=== PATIENT | female | born 1930 | race African-American/Black ===

== ENCOUNTER 2017-06-15 19:14 | Observation (INO) | payer OTHER ==
[~2017-06-15] VITALS: Ht 165.1 cm; Wt 61.2 kg
--- NOTE | ~2017-06-15 | 2DMMODE ---
[facility] [address] [place] [address] 2 D/M-MODE ECHOCARDIOGRAM Name: MARKY VAZQUEZ Room #: 205-P ADM IN M.R.#: [id number] Admission: 06/15/17 Attend Phys: Jeb Boyce, Discharge: Date of : [birth year] Date of Service: 06/16/17 1215 Report #: [id number] THIS REPORT FOR: //name// APPROVED REPORT Study performed: 06/16/2017 10:26:26 EXAM: Comprehensive 2D, Doppler, and color-flow Echocardiogram Patient Location: Echo lab Room #: [facility] Status: routine BSA: 1.67 HR: 64 bpm BP: 119/63 mmHg Rhythm: NSR Other Information Study Quality: Good Indications Syncope 2D Dimensions RVDd: 38.50 mm LVEF(%): 32.93 (>50%) IVSd: 10.72 (7-11mm) LVDd: 54.26 mm PWd: 9.50 (7-11mm) Ascending Ao: 29.86 (22-36mm) LVDs: 45.70 (25-40mm) Aortic Root: 31.26 mm Garces's LVEF: 32.93 % Volumes Left Atrial Volume (Systole) Single Plane 4CH: 42.38 mL Single Plane 2CH: 36.55 mL LA ESV Index: 27.00 mL/m2 Aortic Valve AoV Peak Jaziel.: 1.22 m/s AO Peak Gr.: 5.93 mmHg LVOT Max P.01 mmHg LVOT Max V: 0.87 m/s Mitral Valve E/A Ratio: 0.6 MV Decel. Time: 270.12 ms MV E Max Jaziel.: 0.57 m/s [facility] [address] [address] 2 D/M-MODE ECHOCARDIOGRAM Name: MARKY VAZQUEZ Room #: 205-P [facility] IN M.R.#: [id number] Admission: 06/15/17 Attend Phys: Jeb Boyce, Discharge: Date of : [birth year] Date of Service: 06/16/17 1215 Report #: [id number] MV A Jaziel.: 0.95 m/s MV PHT: 78.33 ms IVRT: 96.89 ms Pulmonary Valve PV Peak Jaziel.: 0.76 m/s PV Peak Gr.: 2.30 mmHg Pulmonary Vein P Vein S: 0.45 m/s P Vein A: 0.23 m/s P Vein D: 0.33 m/s P Vein A Dur.: 87.7 msec P Vein S/D Ratio: 1.36 Tricuspid Valve TR Peak Jaziel.: 3.03 m/s RAP Estimate: 10.00 mmHg TR Peak Gr.: 36.63 mmHg PA Pressure: 47.00 mmHg Left Ventricle The left ventricle is normal size. There is normal left ventricular wall thickness. Left ventricular systolic function is moderately decreased. LVEF is 35-40%. with segmental wall motion abnormalities Grade I - abnormal relaxation pattern. Right Ventricle The right ventricle is normal size. The right ventricular systolic function is normal. Atria The left atrium size is normal. The right atrium size is normal. Aortic Valve Aortic valve leaflets are mildly thickened and calcified. Aortic valve is trileaflet. Trace aortic regurgitation. There is no aortic valvular stenosis. Mitral Valve Mitral valve leaflets are mildly thickened. Mild mitral annular calcification. Trace to mild mitral regurgitation. No evidence of mitral valve stenosis. Tricuspid Valve The tricuspid valve is normal in structure. There is mild tricuspid regurgitation. The right atrial pressure is estimated at 10 mmHg. There is moderate pulmonary hypertension with an estimated PAP of 47mmHg. [address] [address] 2 D/M-MODE ECHOCARDIOGRAM Name: MARKY VAZQUEZ Room #: 205-P [facility] IN ..#: [id number] Admission: 06/15/17 Attend Phys: Jeb Boyce, Discharge: Date of : [birth year] Date of Service: 06/16/17 1215 Report #: [id number] Pulmonic Valve The pulmonary valve is normal in structure. Trace pulmonic regurgitation. Great Vessels The aortic root is normal in size. The ascending aorta is normal in size. IVC is normal in size and collapses <50% with inspiration. Pericardium There is no pericardial effusion. <Conclusion> The left ventricle is normal size. Left ventricular systolic function is moderately decreased. LVEF is 35-40%. with segmental wall motion abnormalities Aortic valve leaflets are mildly thickened and calcified. Aortic valve is trileaflet. Trace aortic regurgitation. Mitral valve leaflets are mildly thickened. Mild mitral annular calcification. Trace to mild mitral regurgitation. The tricuspid valve is normal in structure. There is mild tricuspid regurgitation. The right atrial pressure is estimated at 10 mmHg. There is moderate pulmonary hypertension with an estimated PAP of 47mmHg. The pulmonary valve is normal in structure. Trace pulmonic regurgitation. <ELECTRONICALLY SIGNED> By: Curtis Harding MD 06/16/17 1215 14 14 Curtis Harding MD /INF
--- NOTE | ~2017-06-15 | EKG ---
[address] [place] [employer] [place] [address] ELECTROCARDIOGRAM REPORT Name: MARKY VAZQUEZ Room #: 205-P ADM IN M.R.#: [id number] Admission: 06/15/17 Attend Phys: Jeb Boyce DO Discharge: Date of : [birth year] Report #: [id number] THIS REPORT FOR: //name// [facility] ED Test Date: 2017-06-15 Test Time: 19:19:36 Pat Name: MARKY VAZQUEZ Department: Room: 205 Gender: F Executive Relations Specialist: NERY : 1930 Requested By: Ramos Martino Order Number: [id number] MD: Antwon Manrique Measurements Intervals [place] Rate: 63 P: 45 MN: 169 QRS: -38 QRSD: 96 T: 88 QT: 397 QTc: 407 Interpretive Statements Sinus rhythm Abnormal R-wave progression, early transition Left ventricular hypertrophy Compared to ECG 04/16/2015 15:30:59 Atrial premature complex(es) no longer present Electronically Signed On 06-16-2017 17:51:19 CDT by Antwon Manrique [email or web address] <ELECTRONICALLY SIGNED> By: Antwon Manrique MD, [facility] 06/16/17 1751 1919 18 Antwon Manrique MD, [facility] /EPI
--- NOTE | ~2017-06-15 | EKG ---
[address] [place] [address] ELECTROCARDIOGRAM REPORT Name: MARKY VAZQUEZ Room #: 205-P ADM IN M.R.#: [id number] Admission: 06/15/17 Attend Phys: Jeb Boyec DO Discharge: Date of : [birth year] Report #: [id number] THIS REPORT FOR: //name// [facility] Test Date: 2017-06-16 Test Time: 07:32:54 Pat Name: MARKY VAZQUEZ Department: Room: 205 P Gender: F Overhead Cleaner: BRADLY : 1930 Requested By: Marisol Carlos Order Number: [id number] MD: Antwon Manrique Measurements Intervals [place] Rate: 66 P: 45 WI: 201 QRS: -44 QRSD: 84 T: 88 QT: 355 QTc: 372 Interpretive Statements Sinus rhythm Left anterior fascicular block Abnormal R-wave progression, late transition Nonspecific T abnormalities Compared to ECG 04/16/2015 15:30:59 nonspecific change in the T wave abnormality Electronically Signed On 06-16-2017 17:56:39 CDT by Antwon Manrique [email or web address] <ELECTRONICALLY SIGNED> By: Antwon Manrique MD, [facility] 06/16/17 1756 0732 0732 Antwon Manrique MD, [facility] /EPI
[~2017-06-15 19:14] MED LIST: LISINOPRIL20 MG PO
[2017-06-15 19:15] VITALS: BP 143/62
[2017-06-15 19:36] LABS: HEMATOCRIT 36.4 % (37.0-47.0); HEMOGLOBIN 12.5 gm/dL (12.0-15.0); MCH 31.5 pg (26.0-34.0); MCHC 34.3 g/dL (28.0-37.0); RBC 3.96 mil/uL (4.20-5.00); RDW 16.3 % (10.5-14.5); WBC 7.2 thou/uL (4.0-11.0)
[2017-06-15 19:43] LABS: CALCIUM 9.3 mg/dL (8.5-10.1); CREATININE 1.1 mg/dL (0.6-1.0); POTASSIUM 4.2 mmol/L (3.5-5.1)
[2017-06-15 19:51] LABS: APTT 24.3 Seconds (24.5-32.8); PROTIME 10.4 Seconds (9.3-11.4)
[2017-06-15 19:52] LABS: TROPONIN-I 0.08 ng/mL (<0.04-0.07)
[2017-06-15 21:36] VITALS: BP 131/51
[2017-06-15 22:16] VITALS: BP 141/81
[2017-06-15 23:48] VITALS: BP 120/58; BP 1208/58
[2017-06-16] VITALS (7 sets, daily range): BP systolic 95–145; BP diastolic 50–76
[2017-06-16 01:50] LABS: CHOLESTEROL 139 mg/dL (<200); HDL CHOLESTEROL 40 mg/dL (>40); LDL CHOLESTEROL 84 mg/dL (<100); TC:HDL 3.5 Ratio (Not establshd); TRIGLYCERIDE 78 mg/dL (<150); VLDL 16 mg/dL (<40)
[2017-06-16 01:51] LABS: SERUM ASSESSMENT Slight Lipemia
[2017-06-17 03:08] LABS: HEMATOCRIT 34.8 % (37.0-47.0); HEMOGLOBIN 11.8 gm/dL (12.0-15.0); MCH 31.3 pg (26.0-34.0); MCHC 33.9 g/dL (28.0-37.0); MCV 92.4 fL (80.0-100.0); PLATELET COUNT 151 thou/uL (150-400); RBC 3.77 mil/uL (4.20-5.00); RDW 15.8 % (10.5-14.5); WBC 6.5 thou/uL (4.0-11.0)
[2017-06-17 03:09] LABS: MANUAL DIFF YES
[2017-06-17 03:13] LABS: CALCIUM 9.3 mg/dL (8.5-10.1); CREATININE 0.8 mg/dL (0.6-1.0); POTASSIUM 3.9 mmol/L (3.5-5.1)
[2017-06-17 04:05] VITALS: BP 136/68
[2017-06-17 04:51] LABS: ABSOLUTE NEUTROPHILS 2.7 thou/uL (1.4-8.2); ATYPICAL LYMPHS 4 %; TOTAL CELL COUNT 100
[2017-06-17 07:18] VITALS: BP 142/75
[2017-06-17 09:41] VITALS: BP 142/75
[2017-06-17 09:50] VITALS: BP 142/75
[2017-06-17] MEDS ORDERED: LISINOPRIL2.5 MG PO (09:58)
[2017-06-17 11:32] VITALS: BP 121/69
[2017-06-17 12:06] VITALS: BP 142/75
== END 2017-06-17 13:40 | disposition home health service (06) ==
LOC: ER 19:14 → 2N 21:11 → EROBS 21:11 → 2N 21:11
PROVIDERS: Emergency Medicine; Family Medicine; Nurse Practitioner Acute Care
DX: R55 Syncope and collapse (principal); R79.89 Other specified abnormal findings of blood chemistry; K21.9 Gastro-esophageal reflux disease without esophagitis; I11.9 Hypertensive heart disease without heart failure

== ENCOUNTER 2017-12-03 14:27 | Inpatient (IN) | payer OTHER ==
[~2017-12-03] VITALS: Ht 162.6 cm; Wt 60.8 kg
--- NOTE | ~2017-12-03 | 2DMMODE ---
[facility] [address] [place] [address] 2 D/M-MODE ECHOCARDIOGRAM Name: MARKY VAZQUEZ Room #: 209-P ADM IN M.R.#: [id number] Admission: 12/03/17 Attend Phys: Srinivas Mckeon Discharge: Date of : [birth year] Date of Service: 12/04/17 0946 Report #: [id number] THIS REPORT FOR: //name// APPROVED REPORT Study performed: 12/04/2017 08:41:21 EXAM: Comprehensive 2D, Doppler, and color-flow Echocardiogram Patient Location: Bedside Room #: 209 Status: routine BSA: 1.65 HR: 94 bpm BP: 149/89 mmHg Other Information Study Quality: Good Indications Congestive Heart Failure Cardiomyopathy 2D Dimensions RVDd: 41.50 mm LVEF(%): 34.66 (>50%) IVSd: 7.53 (7-11mm) LVOT Diam: 17.55 (18-24mm) LVDd: 47.00 mm PWd: 8.51 (7-11mm) Ascending Ao: 30.43 (22-36mm) LVDs: 39.24 (25-40mm) Aortic Root: 27.96 mm IVC: 19.00 mm Garces's LVEF: 34.66 % Volumes Left Atrial Volume (Systole) Single Plane 4CH: 98.78 mL Single Plane 2CH: 60.05 mL LA ESV Index: 51.00 mL/m2 Aortic Valve AoV Peak Jaziel.: 1.29 m/s AO Peak Gr.: 6.62 mmHg LVOT Max P.00 mmHg LVOT Max V: 0.71 m/s ROGELIO Vmax: 1.33 cm2 Mitral Valve E/A Ratio: 1.4 MV Decel. Time: 123.37 ms [facility] [place] [address] 2 D/M-MODE ECHOCARDIOGRAM Name: MARKY VAZQUEZ Room #: 209-P ADM IN M.R.#: [id number] Admission: 12/03/17 Attend Phys: Srinivas Mckeon Discharge: Date of : [birth year] Date of Service: 12/04/17 0946 Report #: [id number] E Max Jaziel.: 1.00 m/s MV A Jaziel.: 0.71 m/s MV PHT: 35.78 ms IVRT: 55.36 ms Pulmonary Valve PV Peak Jaziel.: 0.72 m/s PV Peak Gr.: 2.06 mmHg HI End Vmax: 2.01 m/s Pulmonary Vein P Vein S: 0.22 m/s P Vein A: 0.18 m/s P Vein D: 0.41 m/s P Vein A Dur.: 73.8 msec P Vein S/D Ratio: 0.54 Tricuspid Valve TR Peak Jaziel.: 3.71 m/s TR Peak Gr.: 55.17 mmHg PA Pressure: 65.00 mmHg Left Ventricle The left ventricle is normal size. There is global hypokinesis of the left ventricle. There is normal left ventricular wall thickness. Left ventricular ejection fraction is severely decreased. LVEF 25%. Grade II - pseudonormal filling dynamics. Right Ventricle Right ventricle is at the upper limits of normal. Right ventricular systolic function is lower limits of normal. Atria Left atrium is dilated. Right atrium is at the upper limits of normal. Aortic Valve Aortic valve is calcified. No aortic regurgitation is present. There is no aortic valvular stenosis. Mitral Valve Mild mitral annular calcification Moderate mitral regurgitation. No evidence of mitral valve stenosis. Tricuspid Valve The tricuspid valve is normal in structure. There is mild tricuspid regurgitation. Estimated PAP 65 mmHg. There is moderate pulmonary hypertension. [facility] [address] [place] [address] 2 D/M-MODE ECHOCARDIOGRAM Name: MARKY VAZQUEZ Room #: 209-P [facility] IN M.R.#: [id number] Admission: 12/03/17 Attend Phys: Srinivas Mckeon Discharge: Date of : [birth year] Date of Service: 12/04/17 0946 Report #: [id number] Pulmonic Valve The pulmonary valve is normal in structure. Mild pulmonic regurgitation. Great Vessels The aortic root is normal in size. IVC is normal in size and collapses <50% with inspiration. Pericardium There is no pericardial effusion. <Conclusion> Left ventricular ejection fraction is severely decreased. There is global hypokinesis of the left ventricle. LVEF 25%. Grade II - pseudonormal filling dynamics. Left atrium is dilated. Aortic valve is calcified. No aortic valvular stenosis or insufficiency. Mild mitral annular calcification Moderate mitral regurgitation. There is mild tricuspid regurgitation. Estimated pulmonary artery pressure of 65 mmHg. There is no pericardial effusion. <ELECTRONICALLY SIGNED> By: Antwon Manrique MD, FACC 12/04/17945 5 5 Antwon Manrique MD, FACC /INF
--- NOTE | ~2017-12-03 | EKG ---
[address] [address] ELECTROCARDIOGRAM REPORT Name: TAYLORMARKY Room #: 170-7 ADM IN M.R.#: [id number] Admission: 12/03/17 Attend Phys: Srinivas Mckeon MD Discharge: Date of : [birth year] Report #: [id number] THIS REPORT FOR: //name// [facility] ED Test Date: 2017-12-03 Test Time: 15:13:01 Pat Name: MARKY VAZQUEZ Department: Room: 170 Gender: F [employer] Loans Officer: MZOOK : 1930 Requested By: Brandon Mills Order Number: [id number] MD: Eric Baumann Measurements Intervals [place] Rate: 94 P: 142 TN: 186 QRS: -29 QRSD: 90 T: 124 QT: 389 QTc: 487 Interpretive Statements Sinus or ectopic atrial rhythm Probable left atrial enlargement LVH with secondary repolarization abnormality Compared to ECG 06/16/2017 07:32:54 Ectopic atrial rhythm now present Electronically Signed On 12-03-2017 16:31:50 SENIOR BUDGET ANALYST by Eric Baumann [email or web address] <ELECTRONICALLY SIGNED> By: Eric Baumann MD 12/03/17 1631 1513 1513 Eric Baumann MD /EPI
--- NOTE | ~2017-12-03 | D ---
[facility] [place] [address] DISCHARGE SUMMARY Name: MARKY VAZQUEZ Room #: 209-P [facility] IN M.R.#: [id number] Admission: 12/03/17 Attend Phys: Srinivas Mckeon MD Discharge: 12/04/17 Date of : [birth year] Report #: [id number] THIS REPORT FOR: //name// CC: Nakita Mckeon DATE OF SERVICE: 12/04/2017 HISTORY OF PRESENT ILLNESS: The patient is an 87-year-old female with history of CHF, who came to the hospital with progressively worsening shortness of breath. Please refer to admission H and P for details. In brief, the patient was found to have CHF exacerbation. HOSPITALIZATION COURSE: The patient was hospitalized. She was treated with IV diuretics. Her condition improved significantly, and by next morning, her lower extremity swelling has resolved. The patient was seen and evaluated by engineering officer. Her ejection fraction in May 2017, was about 40%. There was no need to repeat echo at this time. The patient was prescribed oral Lasix as well as lisinopril dose was increased to 10 mg a day, from 2.5 mg a day. Potassium supplementation was also provided. This morning, the patient is completely asymptomatic. She is instructed to follow closely low salt diet, as well as follow fluid restriction. She will have outpatient followup with engineering officer in 1 week or so. DISCHARGE MEDICATIONS: Include lisinopril 10 mg a day, Lasix 40 mg a day, and potassium 20 mEq a day. DISCHARGE DIAGNOSIS: Congestive heart failure exacerbation, acute, systolic, resolved. Currently compensated. Ejection fraction 35%-40% based on cardiac echo in May 2017. SECONDARY DIAGNOSES: Hypertension, gastroesophageal reflux disease and cataracts. DISPOSITION: The patient is discharged home. FOLLOWUP PLAN: Follow up with engineering officer within 1 week. <ELECTRONICALLY SIGNED> By: Srinivas Mckeon MD 12/07/17 1906 1235 1307 Srinivas Mckeon MD /nt
[~2017-12-03 14:27] MED LIST changes: +LISINOPRIL2.5 MG PO
[2017-12-03 14:29] VITALS: BP 145/76
[2017-12-03 15:39] LABS: MCHC 34.2 g/dL (28.0-37.0); MCV 90.7 fL (80.0-100.0); PLATELET COUNT 202 thou/uL (150-400); RBC 3.86 mil/uL (4.20-5.00); RDW 15.8 % (10.5-14.5); WBC 9.7 thou/uL (4.0-11.0)
[2017-12-03 15:47] LABS: CALCIUM 9.5 mg/dL (8.5-10.1); POTASSIUM 3.4 mmol/L (3.5-5.1)
[2017-12-03 15:56] LABS: ALBUMIN 3.2 g/dL (3.4-5.0); TOTAL BILIRUBIN 0.5 mg/dL (<0.1-1.0); TOTAL PROTEIN 6.8 g/dL (6.4-8.2); TROPONIN-I 0.12 ng/mL (<0.06)
[2017-12-03 16:00] LABS: ABSOLUTE NEUTROPHILS 7.5 thou/uL (1.4-8.2); PLATELET ESTIMATE NORMAL
[2017-12-03] MEDS ORDERED: LASIX 20 MG TAB20 MG PO (16:20)
[2017-12-03 16:40] VITALS: BP 153/81
[2017-12-03 17:04] VITALS: BP 163/104
[2017-12-03 18:18] VITALS: BP 154/90
[2017-12-03 18:21] LABS: TSH 6.709 uIU/mL (0.358-3.740)
[2017-12-03 20:41] VITALS: BP 149/90
[2017-12-04 00:12] VITALS: BP 132/80
[2017-12-04 03:42] LABS: HEMATOCRIT 37.7 % (37.0-47.0); HEMOGLOBIN 12.9 gm/dL (12.0-15.0); MCH 30.8 pg (26.0-34.0); MCHC 34.1 g/dL (28.0-37.0); MCV 90.3 fL (80.0-100.0); PLATELET COUNT 211 thou/uL (150-400); RBC 4.18 mil/uL (4.20-5.00); RDW 15.9 % (10.5-14.5); WBC 8.3 thou/uL (4.0-11.0)
[2017-12-04 03:45] LABS: CALCIUM 9.5 mg/dL (8.5-10.1); CREATININE 0.9 mg/dL (0.6-1.0); POTASSIUM 3.3 mmol/L (3.5-5.1)
[2017-12-04 04:24] VITALS: BP 149/89
[2017-12-04 04:35] LABS: ABSOLUTE NEUTROPHILS 5.1 thou/uL (1.4-8.2); ATYPICAL LYMPHS 14 %; ATYPICAL MONONUCLEARS 2 %; NUCLEATED RBCS 1 /100WBC
[2017-12-04 07:37] VITALS: BP 151/94
[2017-12-04 11:11] VITALS: BP 125/85
[2017-12-04] MEDS ORDERED: LISINOPRIL10 MG PO (12:38)
[2017-12-04] MEDS ORDERED: LASIX 40 MG TAB40 M1 PO (12:38)
[2017-12-04] MEDS ORDERED: K-DUR 20 MEQ T20 MEQ PO (12:38)
[2017-12-04 12:58] VITALS: BP 125/85
[2017-12-04 15:30] VITALS: BP 125/85
== END 2017-12-04 13:58 | disposition home or self-care (01) | DRG 293 ==
LOC: ER 14:27 → EROBS 16:21 → 2N 16:21 → ENTRNSPT 12-04 13:48 → EDTRNSPTSTS 12-04 13:50 → 2N 12-04 13:58
PROVIDERS: Internal Medicine Endocrinology, Diabetes & Metabolism; Physician Assistant
DX: I11.0 Hypertensive heart disease with heart failure (principal); I50.23 Acute on chronic systolic (congestive) heart failure; K21.9 Gastro-esophageal reflux disease without esophagitis; G89.29 Other chronic pain; M54.9 Dorsalgia, unspecified; Z90.710 Acquired absence of both cervix and uterus; Z79.899 Other long term (current) drug therapy; Z98.42 Cataract extraction status, left eye; Z98.41 Cataract extraction status, right eye; Z90.49 Acquired absence of other specified parts of digestive tract; Z80.9 Family history of malignant neoplasm, unspecified
CPT/HCPCS: 10081